=== PATIENT | female | born 1955 | race American Indian/Alaskan Native ===

== ENCOUNTER 2021-07-31 13:24 | Outpatient (CLI) | payer OTHER ==
--- NOTE | 2021-08-01 11:32 | Electrocardiograph Report ---
[facility] Test Date: 2021-07-31 Test Time: 13:48:33 Pat Name: RADHA MONTOYA Department: Room: Gender: F [employer] Operator [employer]ag: AMBER : 1955 Requested By: PETER BHATIA Order Number: [id number] Reading MD: Zane Bill Measurements Intervals [place] Rate: 56 P: 37 SC: 162 QRS: 0 QRSD: 90 T: 48 QT: 403 QTc: 389 Interpretive Statements Sinus rhythm No previous ECG available for comparison Electronically Signed On 08-01-2021 10:43:50 EDT by Zane Bill
== END 2021-07-31 13:25 | disposition home or self-care (01) ==
LOC: CARD 13:24
PROVIDERS: ATTEND Internal Medicine
DX: R07.9 Chest pain, unspecified (principal)
CPT/HCPCS: 93005